=== PATIENT | female | born 1955 | race Caucasian/White ===

== ENCOUNTER 2018-01-21 12:53 | Inpatient (IN) ==
[2018-01-21] MEDS ORDERED: Acetaminophen 325 MG TABLET PO PRN (14:01)
[2018-01-21] MEDS ORDERED: *HR* OxyCODONE Immed Rel 15 MG TABLET PO PRN (14:16)
[2018-01-21] MEDS: levETIRAcetam 250 MG TABLET PO SCH (18:00)
[2018-01-21] MEDS: *HR* Morphine Sulfate SR (12 HR) 30 MG TABLET.ER PO SCH (18:00)
[2018-01-21] MEDS: Ibuprofen 600 MG TABLET PO SCH (21:13)
[2018-01-21] MEDS: Sennosides 8.6 MG TABLET PO SCH (21:13)
[2018-01-21] MEDS: BuPROPion XL (24 HR) 150 MG TABLET PO SCH (21:13)
[2018-01-22] MEDS: levETIRAcetam 250 MG TABLET PO SCH ×2 (06:23→18:49)
[2018-01-22] MEDS: *HR* Morphine Sulfate SR (12 HR) 30 MG TABLET.ER PO SCH ×2 (06:23→18:49)
[2018-01-22] MEDS: BuPROPion XL (24 HR) 150 MG TABLET PO SCH ×2 (09:42→20:50)
[2018-01-22] MEDS: Ibuprofen 600 MG TABLET PO SCH ×2 (09:43→20:48)
[2018-01-22] MEDS: Sennosides 8.6 MG TABLET PO SCH ×2 (09:44→20:50)
[2018-01-22] MEDS: Propranolol LA (24 HR) 60 MG CAP.SA.24H PO SCH (15:42)
[2018-01-22] MEDS: Furosemide 40 MG TABLET PO SCH (15:42)
[2018-01-23] MEDS: *HR* Morphine Sulfate SR (12 HR) 30 MG TABLET.ER PO SCH (06:44)
[2018-01-23] MEDS: levETIRAcetam 250 MG TABLET PO SCH (06:44)
[2018-01-23 07:36] VITALS: BP 116/80
[2018-01-23] MEDS: BuPROPion XL (24 HR) 150 MG TABLET PO SCH (08:12)
[2018-01-23] MEDS: Ibuprofen 600 MG TABLET PO SCH (08:16)
[2018-01-23] MEDS: Sennosides 8.6 MG TABLET PO SCH (08:17)
[2018-01-23] MEDS: Furosemide 40 MG TABLET PO SCH (08:17)
[2018-01-23] MEDS: Propranolol LA (24 HR) 60 MG CAP.SA.24H PO SCH (08:21)
== END 2018-01-23 11:17 | disposition hospice, home (50) | DRG 755 ==
LOC: INPPIK 13:37
PROVIDERS: ADMIT Internal Medicine; ATTEND Internal Medicine